=== PATIENT | male | born 2000 | race Two or more races ===

== ENCOUNTER 2022-02-21 17:24 | Emergency (ER) | payer SELFPAY ==
[~2022-02-21] VITALS: Ht 167.6 cm; Wt 71.7 kg
[2022-02-21 17:33] VITALS: BP 135/80
--- NOTE | 2022-02-21 17:37 | NUR ---
Pt has no medical complaints at this time. Awake/Alert [facility]. In NO obvious distress. Security called to wand/check pt patient
--- NOTE | 2022-02-21 20:24 | NUR ---
Patient discharged to home in stable condition. Written and verbal after care instructions given. Patient verbalizes understanding of instruction.
== END 2022-02-21 20:24 | disposition home or self-care (01) ==
LOC: ER 17:28
DX: F12.90 Cannabis use, unspecified, uncomplicated (principal); Z60.2 Problems related to living alone